=== PATIENT | female | born 1990 | race Caucasian/White ===

== ENCOUNTER 2023-12-13 04:35 | Emergency (ER) | payer BC, OTHER ==
[~2023-12-13] VITALS: Ht 160 cm; Wt 90.7 kg
[2023-12-13 04:43] VITALS: BP 160/85; PULSE 132; RESP 20; TEMP 98; O2SAT 99
[2023-12-13] MEDS: IBUPROFEN 600 MG TAB PO ONE (05:07)
[2023-12-13 05:09] VITALS: BP 160/85; PULSE 132; RESP 20; TEMP 98; O2SAT 99
== END 2023-12-13 05:09 ==
LOC: MED 04:35 → EDBD 04:35 → MED 05:09
DX: M54.2 Cervicalgia (principal); M54.9 Dorsalgia, unspecified; R03.0 Elevated blood-pressure reading, without diagnosis of hypertension; V89.2XXA Person injured in unspecified motor-vehicle accident, traffic, initial encounter; Y93.89 Activity, other specified; Y92.411 Interstate highway as the place of occurrence of the external cause; Y99.8 Other external cause status
CPT/HCPCS: 99283